=== PATIENT | male | born 1995 | race African-American/Black ===

== ENCOUNTER 2024-12-10 09:21 | Emergency (ER) | payer MEDICAID ==
[2024-12-10 09:40] VITALS: TEMP 98.4
--- NOTE | 2024-12-10 09:53 | ERPHSYRPT ---
- History of Present Illness Time Seen by Provider: 12/10/24 09:49 Historian: patient Exam Limitations: no limitations Patient Subjective Stated Complaint: Pt c/o of N&V and diarrhea for 2 days, pt has a hx of seizures and hasn't had his medications for a couple of months due to being new to the area and did have a seizure in the past 48 hours Triage Nursing Assessment: Pt brought to the ER by EMS, vitals wnl, rates right sided lateral upper pain, pulses normal, skin n/w/d, denies chest pain, no difficulty breathing, pt reports having a syncopal episode while on the toilet this morning, N&V and diarrhea, doesn't appear to be in any distress Physician History: 29 years old male with history of seizure disorders currently out of his medications for almost a month since patient moved here and has not established care yet presented in the ER with 2 days history of right-sided abdominal pain with nausea vomiting. Patient reports he is not able to hold anything down. Feeling weak fatigued tired, dizzy and lightheaded. Earlier he was vomiting and then passed out for few seconds and did hit his head against the floor. No seizure-like activity noticed. Reports moderate intensity abdominal pain in the right upper abdomen with some radiation to the back. No difficulty breathing. No fever or chills reported. Allergies/Adverse Reactions: No Known Drug Allergies Allergy (Verified 12/10/24 09:40) Hx Influenza Vaccination/Date Given: No Hx Pneumococcal Vaccination/Date Given: No Travel Risk - International Travel Have you traveled outside of the country in past 3 weeks: No - Emerging Infectious Disease Are you exhibiting symptoms associated with any current EIDs: Yes Symptoms: Abdominal Pain, Diarrhea, Vomitting - Review of Systems Constitutional: Fatigue, Weakness Eyes: No Symptoms Ears, Nose, & Throat: No Symptoms Respiratory: No Symptoms Cardiac: No Symptoms Abdominal/Gastrointestinal: Abdominal Pain, Nausea, Vomiting Genitourinary Symptoms: No Symptoms Musculoskeletal: No Symptoms Neurological: Dizziness Psychological: No Symptoms Endocrine: No Symptoms Hematologic/Lymphatic: No Symptoms Immunological/Allergic: No Symptoms - Past Medical History Pertinent Past Medical History: Yes Neurological History: Seizures Cardiac History: Other Other Medical History: reports a "heart incident" when asked he states that it was like a mini heart attack, born with a heart murmur - Past Surgical History Past Surgical History: Yes Gastrointestinal: Appendectomy - Social History Smoking Status: Current every day smoker Exposure to second hand smoke: Yes Drug Use: none - Social Determinants of Health Will the patient participate in the screening: Yes Do you worry about a steady place to live?: No Do you have any problems with any of the following?: No known problems In the past 12 months,have you had to go without utilities?: No Transportation Issues: No Has anyone in your support network made you feel unsafe?: No Have you or anyone in your house had to go w/o enough food: No - Nursing Vital Signs Nursing Vital Signs: Initial Vital Signs Temperature 98.4 F 12/10/24 09:26 Pulse Rate 69 12/10/24 09:26 Blood Pressure 136/80 12/10/24 09:26 O2 Sat by Pulse Oximetry 98 12/10/24 09:26 Pain Scale Pain Intensity 0 - Physical Exam General Appearance: no apparent distress, alert Eye Exam: PERRL/EOMI Ears, Nose, Throat Exam: normal ENT inspection Neck Exam: normal inspection, supple, full range of motion Respiratory Exam: normal breath sounds, lungs clear Cardiovascular Exam: regular rate/rhythm, normal heart sounds Gastrointestinal/Abdomen Exam: soft, normal bowel sounds, tenderness (Right upper abdomen with some guarding but no rebound.) Back Exam: normal inspection, normal range of motion Extremity Exam: normal inspection, normal range of motion, pelvis stable Neurologic Exam: alert, oriented x 3, cooperative, merry go round operator II-XII nml as tested, normal mood/affect, nml cerebellar function, nml station & gait, sensation nml, No motor deficits Skin Exam: normal color SpO2 Interpretation: normal SpO2: 98 O2 Delivery: Room Air Ordered Tests: Active Orders 24 hr Category Date Time Status IV Insertion STAT Care 12/10/24 09:49 Active NPO (ED) STAT Care 12/10/24 09:49 Active ABDOMEN AND PELVIS W/0 CONTRAS [CT] Stat Exams 12/10/24 09:50 Completed HEAD WITHOUT CONTRAST [CT] Stat Exams 12/10/24 09:50 Completed CBC W DIFF Stat Lab 12/10/24 10:50 Completed CMP Stat Lab 12/10/24 10:50 Completed LIPASE Stat Lab 12/10/24 10:50 Completed UA W/RFX UR CULTURE Stat Lab 12/10/24 10:32 Completed Medication Summary Discontinued Medications Generic Name Dose Route Start Last Admin Trade Name Jonathan PRN Reason Stop Dose Admin Sodium Chloride 1,000 mls @ 999 mls/hr 12/10/24 09:49 12/10/24 11:29 Sodium Chloride 0.9% 1000 Ml IV 12/10/24 10:49 Infused .Q1H1M STA Infusion Sodium Chloride Confirm 12/10/24 09:58 Sodium Chloride 0.9% 1000 Ml Administered 12/10/24 09:59 Dose 1,000 mls @ ud .ROUTE .STK-MED ONE Morphine Sulfate 4 mg 12/10/24 09:49 12/10/24 09:59 Morphine Sulfate 4 Mg/Ml Injection IV 12/10/24 09:50 4 mg STAT ONE Administration Morphine Sulfate Confirm 12/10/24 09:58 Morphine Sulfate 4 Mg/Ml Injection Administered 12/10/24 09:59 Dose 4 mg .ROUTE .STK-MED ONE Ondansetron HCl 4 mg 12/10/24 09:49 12/10/24 09:59 Ondansetron Hcl 4 Mg/2 Ml Vial IV 12/10/24 09:50 4 mg STAT ONE Administration Ondansetron HCl Confirm 12/10/24 09:57 Ondansetron Hcl 4 Mg/2 Ml Vial Administered 12/10/24 09:58 Dose 4 mg .ROUTE .STK-MED ONE Lab/Rad Data: Laboratory Result Diagrams 12/10/24 10:50 12/10/24 10:50 Laboratory Results 12/10/24 12/10/24 12/10/24 Range/Units 10:50 10:50 10:32 WBC 11.3 H (4.23-9.07) x10^3/uL RBC 4.52 L (4.63-6.08) x10^6/uL Hgb 14.1 (13.7-17.5) g/dL Hct 40.9 (40.1-51.0) % MCV 90.5 (79.0-92.2) fL MCH 31.2 (25.7-32.2) pg MCHC 34.5 (32.3-36.5) g/dL RDW 12.6 (11.6-14.4) % Plt Count 270 (163-337) x10^3/uL MPV 10.0 (9.4-12.4) fL Gran % 74.7 H (34.0-67.9) % Immature Gran % (Auto) 0.4 (0.001-0.429) % Nucleat RBC Rel Count 0.0 (0.00-0.2) % Eos # (Auto) 0.02 L (0.04-0.54) x10^3/uL Immature Gran # (Auto) 0.04 H (0.001-0.031) x10^3u/L Absolute Lymphs (auto) 2.14 (1.32-3.57) x10^3/uL Absolute Monos (auto) 0.61 (0.30-0.82) x10^3/uL Absolute Nucleated RBC 0.00 (0.00-0.012) x10^3u/L Lymphocytes % 18.9 L (21.8-53.1) % Monocytes % 5.4 (5.3-12.2) % Eosinophils % 0.2 L (0.8-7.0) % Basophils % 0.4 (0.2-1.2) % Absolute Granulocytes 8.46 H (1.78-5.38) x10^3/uL Basophils # 0.05 (0.01-0.08) x10^3/uL Sodium 139 (135-145) mmol/L Potassium 3.8 (3.5-5.1) mmol/L Chloride 107 (98-107) mmol/L Carbon Dioxide 22 (22-30) mmol/L Anion Gap 13.4 (5-15) MEQ/L BUN 13 (9-20) mg/dL Creatinine 0.94 (0.66-1.25) mg/dL Estimated GFR 111.8 ML/MIN Glucose 95 (74-106) mg/dL Calcium 9.1 (8.4-10.2) mg/dL Total Bilirubin 1.30 (0.2-1.3) mg/dL AST 31 (17-59) U/L ALT 21 (0-50) U/L Alkaline Phosphatase 49 (38-126) U/L Serum Total Protein 6.9 (6.3-8.2) g/dL Albumin 4.3 (3.5-5.0) g/dL Lipase 50 (23-300) U/L Urine Color Yellow (Yellow) Urine Appearance Clear (Clear) Urine pH 7.0 (4.6-8.0) Ur Specific [place] <=1.005 (1.005-1.030) Urine Protein Negative (Negative) Urine Glucose (UA) Negative (Negative) mg/dL Urine Ketones Negative (Negative) Urine Blood Negative (Negative) Urine Nitrite Negative (Negative) Urine Bilirubin Negative (Negative) Urine Urobilinogen 0.2 (0.2) mg/dL Ur Leukocyte Esterase Negative (Negative) U Hyaline Cast (Auto) NONE SEEN (0-2) /LPF Urine Microscopic RBC 0-2 (0-5) /HPF Urine Microscopic WBC 0-2 (0-5) /HPF Ur Epithelial Cells None Seen (None Seen) /HPF Urine Bacteria None Seen (None Seen) /HPF Urine Culture Reflexed NO (NO) - Progress Progress: improved, pain not gone completely Progress Note: 12/10/24 13:12 29 years old is evaluated the ER for right-sided abdominal pain with nausea vomiting. Patient has some tenderness in the right upper quadrant but no rebound. He is given fluids and symptomatic treatment, on reevaluation his pain is remar kably improved. No vomiting after Zofran while in the ER. White count of 11, chemistries fairly unremarkable, normal lipase. No UTI. CT abdomen pelvis showed normal gallbladder pancreas and no other acute abdominal pelvic findings. I believe patient possibly have viral gastroenteritis symptoms, recommended supportive/symptomatic care. Since patient has history of seizures and is off of his medication, will give him a prescription of Keppra and recommended outpatient follow-up with PCP. Discussed signs symptoms of worsening needing return to ER which she seems understanding. Stable for discharge. Complexity of problem addressed: Moderate acute Complexity of data reviewed/analyzed: Moderate Risk of complications/morbidity associated with condition: Low Counseled pt/family regarding: lab results, diagnosis, need for follow-up, rad results Medical Desision Making - Diagnostic Testing Diagnostic test were ordered, analyzed, and reviewed by me: Yes Radiological Interpretation: Reviewed by me - Risk of complications The pt has a mod risk of morbidity or mortality based on: Need for prescription drug management - Departure Departure Disposition: Home Clinical Impression: Upper abdominal pain, Vomiting, Seizure Condition: Stable Critical Care Time: No Referrals: DOCTOR,NO FAMILY [Primary Care Provider] - Follow up with PCP 1 day Instructions: Nausea and vomiting in adults - ED discharge instructions Additional Instructions: take Tylenol / Zofran as needed, follow up with PCP for re evaluations, return to ER for worsening Prescriptions: Levetiracetam [Keppra] 750 mg PO BID 30 Days #60 tablet Ondansetron ODT 4 MG [Zofran Odt 4 mg] 1 ea PO QIDPRN PRN #7 tablet PRN Reason: n/v
[2024-12-10] MEDS ORDERED: Zofran 4 MG/2 ML VIAL ONE (09:57)
[2024-12-10] MEDS ORDERED: MORPHINE SULFATE 4 MG INJ ONE (09:58)
[2024-12-10] MEDS ORDERED: Sodium Chloride 0.9% 1000 ML 1,000 ML ONE (09:58)
[2024-12-10] MEDS: Sodium Chloride 0.9% 1000 ML 1,000 ML IV STA (09:59)
[2024-12-10] MEDS: Zofran 4 MG/2 ML VIAL IV ONE (09:59)
[2024-12-10] MEDS: MORPHINE SULFATE 4 MG INJ IV ONE (09:59)
[2024-12-10 10:58] LABS: Absolute Neutrophil Ct (ANC) 8.46 x10^3/uL (1.78-5.38); BASOPHIL % 0.4 % (0.2-1.2); Basophil (Absolute #) 0.05 x10^3/uL (0.01-0.08); Eosinophil % 0.2 % (0.8-7.0); Eosinophil (Absolute #) 0.02 x10^3/uL (0.04-0.54); Hematocrit 40.9 % (40.1-51.0); Hemoglobin 14.1 g/dL (13.7-17.5); IMMATURE GRAN # 0.04 x10^3u/L (0.001-0.031); IMMATURE GRAN % 0.4 % (0.001-0.429); Lymphocyte (Absolute #) 2.14 x10^3/uL (1.32-3.57); Lymphocytes % 18.9 % (21.8-53.1); Mean Cell Volume 90.5 fL (79.0-92.2); Mean Corpuscular Hemoglobin 31.2 pg (25.7-32.2); Mean Corpuscular Hgb Concent. 34.5 g/dL (32.3-36.5); Monocyte (Absolute #) 0.61 x10^3/uL (0.30-0.82); Monocytes % 5.4 % (5.3-12.2); Neutrophil % 74.7 % (34.0-67.9); Platelet Count 270 x10^3/uL (163-337); Red Blood Count 4.52 x10^6/uL (4.63-6.08); Red Cell Distribution Width 12.6 % (11.6-14.4); White Blood Count 11.3 x10^3/uL (4.23-9.07)
[2024-12-10 11:11] LABS: ALBUMIN 4.3 g/dL (3.5-5.0); ANION GAP 13.4 MEQ/L (5-15); BILIRUBIN,TOTAL 1.3 mg/dL (0.2-1.3); Calcium 9.1 mg/dL (8.4-10.2); Creatinine 1 0.94 mg/dL (0.66-1.25); EST GLOMERULAR FILTRATION RATE 111.8 ML/MIN; Potassium 3.8 mmol/L (3.5-5.1); Total Protein 6.9 g/dL (6.3-8.2)
--- NOTE | 2024-12-10 11:28 | XRAY ---
Indication: Syncope. Head injury. Multiple contiguous axial images obtained through the head without contrast. Comparison: None Normal appearing brain parenchyma, ventricles, and bony calvarium. Visualized paranasal sinuses and mastoid air cells are clear. Impression: Normal CT head without contrast exam.
--- NOTE | 2024-12-10 11:35 | XRAY ---
Indication: Right pain. Vomiting. Multiple contiguous axial images obtained through the abdomen and pelvis without contrast. Comparison: None Lung bases clear. Heart not enlarged. Noncontrasted stomach and bowel loops appear nonobstructed. Previous appendectomy. No free fluid/air. Right kidney demonstrates nonobstructing punctate calculus. Remaining liver, gallbladder, pancreas, spleen, adrenal glands, kidneys, ureters, bladder, and aorta are unremarkable for noncontrast exam. Osseous structures intact with minimal dextroscoliosis centered at L3. No ventral or inguinal hernias. Impression: Nonobstructing right renal punctate calculus and minimal dextroscoliosis. Otherwise normal CT abdomen/pelvis without contrast exam.
[2024-12-10 12:15] VITALS: PULSE 60
[2024-12-10 13:02] VITALS: BP 117/80
[2024-12-10 13:04] LABS: Appearance Clear (Clear); Bacteria None Seen /HPF (None Seen); Bilirubin Negative (Negative); Blood Negative (Negative); Epithelial Cells None Seen /HPF (None Seen); Glucose, Urine Negative (Negative); Hyaline Casts NONE SEEN /LPF (0-2); Ketones Negative (Negative); Leukocyte Esterase Negative (Negative); Nitrite Negative (Negative); Protein,Urine Dip Negative (Negative); RBC 0-2 /HPF (0-5); Specific Gravity <=1.005 (1.005-1.030); Urobilinogen 0.2 mg/dL (0.2); WBC 0-2 /HPF (0-5)
[2024-12-10 13:13] VITALS: O2SAT 98
== END 2024-12-10 13:26 | disposition home or self-care (01) ==
LOC: ED 09:21
DX: R11.2 Nausea with vomiting, unspecified (principal); R10.10 Upper abdominal pain, unspecified; G40.909 Epilepsy, unspecified, not intractable, without status epilepticus; R53.1 Weakness; Z79.899 Other long term (current) drug therapy; Z72.0 Tobacco use
CPT/HCPCS: 36415; 70450; 74176; 80053; 81001; 83690; 85025; 96361; 96374; 96375; 99284; J2270; J2405

== ENCOUNTER 2024-12-12 11:34 | Emergency (ER) | payer MEDICAID ==
[2024-12-12] MEDS ORDERED: XYLOCAINE 1% HCL 20 ML MDV IJ ONE (11:35)
[2024-12-12 11:59] VITALS: BP 128/83; PULSE 57; RESP 20; TEMP 97.9; O2SAT 98
--- NOTE | 2024-12-12 12:25 | ERPHSYRPT ---
- History of Present Illness Time Seen by Provider: 12/12/24 12:21 Source: patient Exam Limitations: no limitations Patient Subjective Stated Complaint: Abdominal pain Triage Nursing Assessment: Patient ambulated back to ED and transferred self to bed. Patient A+O X3. Patient's skin pink, warm and dry. Patient complains of mid abdominal pain 6/10 with N/V and diarrhea. Patient was seen 2 days ago in ER and is not better. Patient also complains of white/clear discharge from penis. Patient also complains of penis being rough feeling. Physician History: Patient is 29-year-old male with without any significant past medical history came to the emergency room with lower abdominal pain and some irritation at the opening of the penile area. Patient denies any fever chills nausea or vomiting. Patient was seen in the emergency room 2 days ago with a he came with abdominal pain nausea and vomiting. His CAT scan was normal except for small right renal calculi. His white count was 11,500 rest of the labs including urinalysis were normal. Now patient denies any nausea or vomiting but complaining of lower abdominal pain with some irritation at the opening of the penis he denies any discharge except some clear discharge. Timing/Duration: day(s) Severity: mild Associated Symptoms: nausea, vomiting, abdominal pain Allergies/Adverse Reactions: No Known Drug Allergies Allergy (Verified 12/12/24 11:48) Hx Influenza Vaccination/Date Given: No Hx Pneumococcal Vaccination/Date Given: No Immunizations Up to Date: Yes Travel Risk - International Travel Have you traveled outside of the country in past 3 weeks: No - Emerging Infectious Disease Are you exhibiting symptoms associated with any current EIDs: No Symptoms: Abdominal Pain, Diarrhea, Vomitting - Review of Systems Constitutional: No Fever, No Chills Eyes: No Symptoms Ears, Nose, & Throat: No Symptoms Respiratory: No Cough, No Dyspnea Cardiac: No Chest Pain, No Edema, No Syncope Abdominal/Gastrointestinal: Abdominal Pain, Nausea, Vomiting, No Diarrhea Genitourinary Symptoms: Penile Discharge, No Dysuria, No Frequency, No Hematuria, No Hesitancy, No Incontinence, No Urgency, No Urinary Retention, No Flank Pain, No Testicle Pain Musculoskeletal: No Back Pain, No Neck Pain Skin: No Rash Neurological: No Dizziness, No Focal Weakness, No Sensory Changes Psychological: No Symptoms Endocrine: No Symptoms All Other Systems: Reviewed and Negative - Past Medical History Pertinent Past Medical History: Yes Neurological History: Seizures Cardiac History: Other Other Medical History: reports a "heart incident" when asked he states that it was like a mini heart attack, born with a heart murmur - Past Surgical History Past Surgical History: Yes Gastrointestinal: Appendectomy - Social History Smoking Status: Current every day smoker How long have you smoked: years Exposure to second hand smoke: No Drug Use: marijuana - Social Determinants of Health Will the patient participate in the screening: Yes Do you worry about a steady place to live?: No Do you have any problems with any of the following?: No known problems In the past 12 months,have you had to go without utilities?: No Transportation Issues: No Has anyone in your support network made you feel unsafe?: No Have you or anyone in your house had to go w/o enough food: No - Nursing Vital Signs Nursing Vital Signs: Initial Vital Signs Temperature 97.9 F 12/12/24 11:49 Pulse Rate 57 L 12/12/24 11:49 Respiratory Rate 20 12/12/24 11:49 Blood Pressure 128/83 12/12/24 11:49 O2 Sat by Pulse Oximetry 98 12/12/24 11:49 Pain Scale Pain Intensity 6 - Physical Exam General Appearance: no apparent distress, alert Eye Exam: PERRL/EOMI, eyes nml inspection Ears, Nose, Throat Exam: normal ENT inspection, TMs normal, pharynx normal, moist mucous membranes Neck Exam: normal inspection, non-tender, supple, full range of motion Respiratory Exam: normal breath sounds, lungs clear, No respiratory distress Cardiovascular Exam: regular rate/rhythm, normal heart sounds, normal peripheral pulses Gastrointestinal/Abdomen Exam: soft, normal bowel sounds, No tenderness, No mass Back Exam: normal inspection, normal range of motion, No CVA tenderness, No vertebral tenderness Extremity Exam: normal inspection, normal range of motion, pelvis stable Neurologic Exam: alert, oriented x 3, cooperative, normal mood/affect, nml cerebellar function, nml station & gait, sensation nml, No motor deficits Skin Exam: normal color, warm, dry, No rash Lymphatic Exam: No adenopathy SpO2: 98 - Course Nursing assessment & vital signs reviewed: Yes Ordered Tests: Active Orders 24 hr Category Date Time Status UA W/RFX UR CULTURE Stat Lab 12/12/24 11:58 Completed Lab/Rad Data: Laboratory Results 12/12/24 12/12/24 Range/Units 11:58 11:58 Urine Color Yellow (Yellow) Urine Appearance CLEAR (Clear) Urine pH 6.5 (4.6-8.0) Ur Specific [place] <=1.005 (1.005-1.030) Urine Protein Negative (Negative) Urine Glucose (UA) Negative (Negative) mg/dL Urine Ketones Negative (Negative) Urine Blood Negative (Negative) Urine Nitrite Negative (Negative) Urine Bilirubin Negative (Negative) Urine Urobilinogen 0.2 (0.2) mg/dL Ur Leukocyte Esterase Negative (Negative) U Hyaline Cast (Auto) NONE SEEN (0-2) /LPF Urine Microscopic RBC 0-2 (0-5) /HPF Urine Microscopic WBC 0-2 (0-5) /HPF Ur Epithelial Cells None Seen (None Seen) /HPF Urine Bacteria None Seen (None Seen) /HPF Urine Culture Reflexed NO (NO) Chlamydia DNA Probe NOT DETECTED (NEGATIVE) N.gonorrhoeae DNA Probe NOT DETECTED (NEGATIVE) - Progress Progress: improved Counseled pt/family regarding: lab results, diagnosis, need for follow-up Medical Desision Making - Diagnostic Testing Diagnostic test were ordered, analyzed, and reviewed by me: Yes - Risk of complications Low Risk: Low risk of morbidity from additional dx testing or treatment - Departure Departure Disposition: Home Clinical Impression: Lower abdominal pain of unknown etiology Condition: Stable Critical Care Time: No Referrals: DOCTOR,NO FAMILY [Primary Care Provider] - Follow up/PCP as directed Instructions: Abdominal pain Additional Instructions: Discharge/Care Plan IOANA PARKS was seen on 12/12/24 in the Emergency Room. The patient was coun seled regarding Diagnosis,Lab results, Imaging studies, need for follow up and when to return to the Emergency Room. Prescriptions given: Discharge Note I have spoken with the patient and/or caregivers. I have explained the patient's condition, diagnosis and treatment plan based on the information available to me at this time. I have answered the patient's and/or caregiver's questions and addressed any concerns. The patient and/or caregivers have as good understanding of the patient's diagnosis, condition and treatment plan as can be expected at this point. The vital signs have been stable. The patient's condition is stable and appropriate for discharge from the emergency department. The patient will pursue further outpatient evaluation with the primary care physician or other designated or consulting physician as outlined in the discharge instructions. The patient and/or caregivers are agreeable to this plan of care and follow-up instructions have been explained in detail. The patient and/or caregivers have received these instruction. The patient/and or caregivers are aware that any significant change in condition or worsening of symptoms should prompt an immediate return to this or the closest emergency department or call 911. IOANA PARKS was seen on 12/12/24 n the Emergency Room. At that time you were treated for an emergent condition, during your visit Laboratory, Radiology and/or other procedures may have been ordered. It is very important that you follow-up with your Primary Care Physician NO FAMILY DOCTOR within the next 24- 48 hours to review your Emergency Room visit and the final results of testing that was ordered. Some test results such as Urine Cultures, Blood Cultures, and other cultures if ordered will not be finalized for 24-48 hours. If you do not have a Primary Care Provider please call the medical records department at [phone] ext [phone] to obtain a copy of your results or you may sign into our patient portal to obtain these results by visiting us @ [email or web address] and completing the following steps: 1. Click on the Patient Portal link 2. Click the Patient Self Enrollment Link to complete the enrollment form and entering your 3. Once the enrollment form is completed you will receive an email with a temporary ID and password at the email address you provided. 4. Next choose a user name and password. Your user name must be at least 4 characters long and your password must be at least 4 characters long. 5. Choose a security question from the list and provide your answer to the question. If you already have signed into the Health Portal you may access your Health Care Information 29/04 by the following steps: 1. Login to our website @ [email or web address] 2. Enter your original user name and password. FAQS The [facility] Health Portal is an online tool that contains your Lab Results, Radiology Reports, Visit History, Discharge Instructions and Health Summary Lab and Radiology Results will not be available for 72 hours on the portal. The Portal is a secure site, passwords are encryted and URLs are re-written so they cannot be copied and pasted. You and authorized family members are the only ones who can access your Portal. Also there is a timeout feature that protects your information if you leave the Portal page open. If you have technical difficulty please use the Contact Us link on the page this will allow you to submit any questions you have regarding the Portal or you may contact the Medical Record Department at [phone]. Prescriptions: Doxycycline Hyclate 100 mg [Vibramycin 100 MG] 100 mg PO BID #14 tab
[2024-12-12 12:41] LABS: Bacteria None Seen /HPF (None Seen); Bilirubin Negative (Negative); Blood Negative (Negative); Epithelial Cells None Seen /HPF (None Seen); Glucose, Urine Negative (Negative); Hyaline Casts NONE SEEN /LPF (0-2); Ketones Negative (Negative); Leukocyte Esterase Negative (Negative); Nitrite Negative (Negative); Ph 6.5 (4.6-8.0); Protein,Urine Dip Negative (Negative); RBC 0-2 /HPF (0-5); Specific Gravity <=1.005 (1.005-1.030); Urobilinogen 0.2 mg/dL (0.2); WBC 0-2 /HPF (0-5)
[2024-12-12 12:42] LABS: Appearance CLEAR (Clear)
[2024-12-12 13:28] LABS: CHLAMYDIA DNA NOT DETECTED (NEGATIVE); GC DNA Probe NOT DETECTED (NEGATIVE)
[2024-12-12] MEDS ORDERED: Rocephin 1000 MG INJ ONE (13:48)
[2024-12-12] MEDS: Rocephin 1000 MG INJ IM ONE (13:54)
== END 2024-12-12 14:15 | disposition home or self-care (01) ==
LOC: ED 11:34
DX: R10.30 Lower abdominal pain, unspecified (principal); N48.89 Other specified disorders of penis; Z79.899 Other long term (current) drug therapy; Z72.0 Tobacco use
CPT/HCPCS: 81001; 87491; 87591; 96372; 99283; J0696

== ENCOUNTER 2024-12-21 14:14 | Emergency (ER) | payer MEDICAID ==
--- NOTE | 2024-12-21 14:35 | ERPHSYRPT ---
- History of Present Illness Time Seen by Provider: 12/21/24 14:33 Source: patient Exam Limitations: no limitations Patient Subjective Stated Complaint: patient states he had a seizure earlier at the [facility] EMS reports when they arrived her was shaking Triage Nursing Assessment: patient alert and oriented x3, Physician History: Patient is a 29-year-old male with a history of seizure disorder presents to our ED via EMS for evaluation of a seizure. Patient reportedly had a generalized seizure while at work. On arrival to our ED patient was conversant. No reports of incontinence. No tongue biting. Patient states he had a seizure approximately 2 weeks ago. He went to [facility] he had a CT of his head there. Patient had his Keppra medication modified. Patient had been doing well up until today. Patient currently complains of some right-sided chest soreness. No abdominal pain. He denies trauma. No neck pain. Cervical spine cleared clinically. Patient otherwise feels well. He voices no other complaints or concerns at this time. Portions of this note were created with voice recognition technology. There may be grammatical, spelling, punctuation or sound alike errors Timing/Duration: today Severity: moderate Modifying Factors: Improves With: nothing Associated Symptoms: denies symptoms Allergies/Adverse Reactions: No Known Drug Allergies Allergy (Verified 12/12/24 11:48) Hx Tetanus, Diphtheria Vaccination/Date Given: Yes Hx Influenza Vaccination/Date Given: No Hx Pneumococcal Vaccination/Date Given: No Immunizations Up to Date: Yes Travel Risk - International Travel Have you traveled outside of the country in past 3 weeks: No - Emerging Infectious Disease Are you exhibiting symptoms associated with any current EIDs: No Symptoms: Abdominal Pain, Diarrhea, Vomitting - Review of Systems Constitutional: No Symptoms, No Fever, No Chills Eyes: No Symptoms Ears, Nose, & Throat: No Symptoms Respiratory: No Symptoms, No Cough, No Dyspnea Cardiac: No Symptoms, No Chest Pain, No Edema, No Syncope Abdominal/Gastrointestinal: No Symptoms, No Abdominal Pain, No Nausea, No Vomiting, No Diarrhea Genitourinary Symptoms: No Symptoms, No Dysuria Musculoskeletal: No Symptoms, No Back Pain, No Neck Pain Skin: No Symptoms, No Rash Neurological: No Symptoms, No Dizziness, No Focal Weakness, No Sensory Changes Psychological: No Symptoms Endocrine: No Symptoms Hematologic/Lymphatic: No Symptoms Immunological/Allergic: No Symptoms All Other Systems: Reviewed and Negative - Past Medical History Pertinent Past Medical History: Yes Neurological History: Seizures Cardiac History: Other Other Medical History: reports a "heart incident" when asked he states that it was like a mini heart attack, born with a heart murmur - Past Surgical History Past Surgical History: Yes Gastrointestinal: Appendectomy - Social History Smoking Status: Current every day smoker How long have you smoked: 15 Drug Use: marijuana - Social Determinants of Health Will the patient participate in the screening: Yes Do you worry about a steady place to live?: Yes Do you have any problems with any of the following?: Mold In the past 12 months,have you had to go without utilities?: No Transportation Issues: Yes Has anyone in your support network made you feel unsafe?: No Have you or anyone in your house had to go w/o enough food: No - Nursing Vital Signs Nursing Vital Signs: Initial Vital Signs Pulse Rate 69 12/21/24 14:14 Respiratory Rate 16 12/21/24 14:14 Blood Pressure 132/80 12/21/24 14:14 O2 Sat by Pulse Oximetry 99 12/21/24 14:14 Pain Scale Pain Intensity 0 - Physical Exam General Appearance: no apparent distress, alert Eye Exam: PERRL/EOMI, eyes nml inspection Ears, Nose, Throat Exam: normal ENT inspection, TMs normal, pharynx normal, moist mucous membranes Neck Exam: normal inspection, non-tender, supple, full range of motion Respiratory Exam: normal breath sounds, lungs clear, No respiratory distress Cardiovascular Exam: regular rate/rhythm, normal heart sounds, normal peripheral pulses Gastrointestinal/Abdomen Exam: soft, normal bowel sounds, No tenderness, No mass Back Exam: normal inspection, normal range of motion, No CVA tenderness, No vertebral tenderness Extremity Exam: normal inspection, normal range of motion, pelvis stable Neurologic Exam: alert, oriented x 3, cooperative, normal mood/affect, sensation nml, No motor deficits Skin Exam: normal color, warm, dry, No rash Lymphatic Exam: No adenopathy SpO2 Interpretation: normal SpO2: 99 O2 Delivery: Room Air - Course Nursing assessment & vital signs reviewed: Yes EKG Interpreted by Me: RATE (54), Sinus Rhythm, NORMAL AXIS, NORMAL INTERVALS, NORMAL QRS Ordered Tests: Active Orders 24 hr Category Date Time Status AMA [Release AMA] OM.NOW Care 12/21/24 19:46 Active College [employer] STAT Care 12/21/24 15:06 Active EKG-ER Only STAT Care 12/21/24 15:05 Active IV Insertion STAT Care 12/21/24 15:05 Completed Pulse Oximetry (ED) STAT Care 12/21/24 15:05 Active CBC W DIFF Stat Lab 12/21/24 15:15 Completed CMP Stat Lab 12/21/24 15:15 Completed MAGNESIUM Stat Lab 12/21/24 15:15 Completed TROPONIN Q4H Lab 12/21/24 15:15 Completed TROPONIN Q4H Lab 12/21/24 18:38 Completed TROPONIN Q4H Lab 12/21/24 23:15 Ordered UA W/RFX UR CULTURE Stat Lab 12/21/24 15:06 Completed Urine Triage Profile Stat Lab 12/21/24 15:06 Completed Lab/Rad Data: Laboratory Result Diagrams 12/21/24 15:15 12/21/24 15:15 Laboratory Results 12/21/24 12/21/24 12/21/24 Range/Units 18:38 15:15 15:15 WBC (4.23-9.07) x10^3/uL RBC (4.63-6.08) x10^6/uL Hgb (13.7-17.5) g/dL Hct (40.1-51.0) % MCV (79.0-92.2) fL MCH (25.7-32.2) pg MCHC (32.3-36.5) g/dL RDW (11.6-14.4) % Plt Count (163-337) x10^3/uL MPV (9.4-12.4) fL Gran % (34.0-67.9) % Immature Gran % (Auto) (0.001-0.429) % Nucleat RBC Rel Count (0.00-0.2) % Eos # (Auto) (0.04-0.54) x10^3/uL Immature Gran # (Auto) (0.001-0.031) x10^3u/L Absolute Lymphs (auto) (1.32-3.57) x10^3/uL Absolute Monos (auto) (0.30-0.82) x10^3/uL Absolute Nucleated RBC (0.00-0.012) x10^3u/L Lymphocytes % (21.8-53.1) % Monocytes % (5.3-12.2) % Eosinophils % (0.8-7.0) % Basophils % (0.2-1.2) % Absolute Granulocytes (1.78-5.38) x10^3/uL Basophils # (0.01-0.08) x10^3/uL Sodium 138 (135-145) mmol/L Potassium 4.2 (3.5-5.1) mmol/L Chloride 104 (98-107) mmol/L Carbon Dioxide 25 (22-30) mmol/L Anion Gap 13.6 (5-15) MEQ/L BUN 15 (9-20) mg/dL Creatinine 0.87 (0.66-1.25) mg/dL Estimated GFR 119.0 ML/MIN Glucose 86 (74-106) mg/dL Calcium 9.9 (8.4-10.2) mg/dL Magnesium 2.0 (1.6-2.3) mg/dL Total Bilirubin 1.20 (0.2-1.3) mg/dL AST 30 (17-59) U/L ALT 22 (0-50) U/L Alkaline Phosphatase 50 (38-126) U/L Troponin I < 0.012 < 0.012 (0.000-0.033) ng/mL Serum Total Protein 7.2 (6.3-8.2) g/dL Albumin 4.7 (3.5-5.0) g/dL Urine Color (Yellow) Urine Appearance (Clear) Urine pH (4.6-8.0) Ur Specific [place] (1.005-1.030) Urine Protein (Negative) Urine Glucose (UA) (Negative) mg/dL Urine Ketones (Negative) Urine Blood (Negative) Urine Nitrite (Negative) Urine Bilirubin (Negative) Urine Urobilinogen (0.2) mg/dL Ur Leukocyte Esterase (Negative) U Hyaline Cast (Auto) (0-2) /LPF Urine Microscopic RBC (0-5) /HPF Urine Microscopic WBC (0-5) /HPF Ur Epithelial Cells (None Seen) /HPF Urine Bacteria (None Seen) /HPF Urine Culture Reflexed (NO) Urine Opiates Level (NEGATIVE) Ur Methadone (NEGATIVE) Urine Barbiturates (NEGATIVE) Ur Phencyclidine (PCP) (NEGATIVE) Urine Amphetamine (NEGATIVE) U Benzodiazepine Level (NEGATIVE) Urine Cocaine (NEGATIVE) Urine Marijuana (THC) (NEGATIVE) 12/21/24 12/21/24 12/21/24 Range/Units 15:15 15:06 15:06 WBC 9.9 H (4.23-9.07) x10^3/uL RBC 4.59 L (4.63-6.08) x10^6/uL Hgb 14.2 (13.7-17.5) g/dL Hct 41.4 (40.1-51.0) % MCV 90.2 (79.0-92.2) fL MCH 30.9 (25.7-32.2) pg MCHC 34.3 (32.3-36.5) g/dL RDW 12.4 (11.6-14.4) % Plt Count 306 (163-337) x10^3/uL MPV 10.2 (9.4-12.4) fL Gran % 69.6 H (34.0-67.9) % Immature Gran % (Auto) 0.4 (0.001-0.429) % Nucleat RBC Rel Count 0.0 (0.00-0.2) % Eos # (Auto) 0.03 L (0.04-0.54) x10^3/uL Immature Gran # (Auto) 0.04 H (0.001-0.031) x10^3u/L Absolute Lymphs (auto) 2.33 (1.32-3.57) x10^3/uL Absolute Monos (auto) 0.58 (0.30-0.82) x10^3/uL Absolute Nucleated RBC 0.00 (0.00-0.012) x10^3u/L Lymphocytes % 23.4 (21.8-53.1) % Monocytes % 5.8 (5.3-12.2) % Eosinophils % 0.3 L (0.8-7.0) % Basophils % 0.5 (0.2-1.2) % Absolute Granulocytes 6.91 H (1.78-5.38) x10^3/uL Basophils # 0.05 (0.01-0.08) x10^3/uL Sodium (135-145) mmol/L Potassium (3.5-5.1) mmol/L Chloride (98-107) mmol/L Carbon Dioxide (22-30) mmol/L Anion Gap (5-15) MEQ/L BUN (9-20) mg/dL Creatinine (0.66-1.25) mg/dL Estimated GFR ML/MIN Glucose (74-106) mg/dL Calcium (8.4-10.2) mg/dL Magnesium (1.6-2.3) mg/dL Total Bilirubin (0.2-1.3) mg/dL AST (17-59) U/L ALT (0-50) U/L Alkaline Phosphatase (38-126) U/L Troponin I (0.000-0.033) ng/mL Serum Total Protein (6.3-8.2) g/dL Albumin (3.5-5.0) g/dL Urine Color Yellow (Yellow) Urine Appearance Clear (Clear) Urine pH 5.5 (4.6-8.0) Ur Specific [place] 1.015 (1.005-1.030) Urine Protein Negative (Negative) Urine Glucose (UA) Negative (Negative) mg/dL Urine Ketones Negative (Negative) Urine Blood Negative (Negative) Urine Nitrite Negative (Negative) Urine Bilirubin Negative (Negative) Urine Urobilinogen 0.2 (0.2) mg/dL Ur Leukocyte Esterase Negative (Negative) U Hyaline Cast (Auto) NONE SEEN (0-2) /LPF Urine Microscopic RBC 0-2 (0-5) /HPF Urine Microscopic WBC 0-2 (0-5) /HPF Ur Epithelial Cells None Seen (None Seen) /HPF Urine Bacteria None Seen (None Seen) /HPF Urine Culture Reflexed NO (NO) Urine Opiates Level NEGATIVE (NEGATIVE) Ur Methadone NEGATIVE (NEGATIVE) Urine Barbiturates NEGATIVE (NEGATIVE) Ur Phencyclidine (PCP) NEGATIVE (NEGATIVE) Urine Amphetamine NEGATIVE (NEGATIVE) U Benzodiazepine Level NEGATIVE (NEGATIVE) Urine Cocaine NEGATIVE (NEGATIVE) Urine Marijuana (THC) POSITIVE A (NEGATIVE) - Progress Progress: improved Progress Note: 29-year-old male history of seizure presents to our ED for evaluation of a seizure that occurred today while at work. Patient had a seizure earlier this month and had his medications adjusted. Laboratory workup in our ED essentially nonremarkable. No head trauma. CT head not repeated. We intended to consult neurology for recommendations regarding medication management. Patient decided to leave AGAINST MEDICAL ADVICE before neurology could evaluate him. No recurrence of seizure during the 5 hours that he has been in our emergency department. Patient is of sound mind. Patient is appropriate to make informed and independent medical decisions. Patient understands that leaving AGAINST MEDICAL ADVICE can result in delayed diagnosis, increased risk of morbidity, mortality, short and long-term disability including . In spite of these risks, patient has decided to leave AGAINST MEDICAL ADVICE. Patient understands that he may return to our ED at any point if he reconsiders. Patient agrees to follow-up with his primary care doctor within 48 hours for reevaluation. Patient voices no other complaints or concerns at this time. We will release patient AGAINST MEDICAL ADVICE per their request. Complexity of problem addressed is moderate acute complicated. No critical care time. Complexity of data reviewed and analyzed is moderate. Test ordered chest reviewed results analyzed and correlated clinically with history and physical exam. Risk of complication and or risk of morbidity/mortality of patient management is low. Vital stable. Time spent to discharge patient is approximately 15 minutes. Plan of care established for shared decision making. No social determinants of health present to impede follow-up. Portions of this note were created with voice recognition technology. There may be grammatical, spelling, punctuation or sound alike errors 12/21/24 19:47 Counseled pt/family regarding: lab results, diagnosis, need for follow-up - Departure Departure Disposition: AMA Clinical Impression: Seizure Condition: Stable Critical Care Time: No Referrals: DOCTOR,NO FAMILY [Primary Care Provider] - Follow up/PCP as directed ROBERT STOVER MD [ACTIVE STAFF] - Follow up/PCP as directed
[2024-12-21 15:19] LABS: Absolute Neutrophil Ct (ANC) 6.91 x10^3/uL (1.78-5.38); BASOPHIL % 0.5 % (0.2-1.2); Basophil (Absolute #) 0.05 x10^3/uL (0.01-0.08); Eosinophil % 0.3 % (0.8-7.0); Eosinophil (Absolute #) 0.03 x10^3/uL (0.04-0.54); Hematocrit 41.4 % (40.1-51.0); Hemoglobin 14.2 g/dL (13.7-17.5); IMMATURE GRAN # 0.04 x10^3u/L (0.001-0.031); IMMATURE GRAN % 0.4 % (0.001-0.429); Lymphocyte (Absolute #) 2.33 x10^3/uL (1.32-3.57); Lymphocytes % 23.4 % (21.8-53.1); Mean Cell Volume 90.2 fL (79.0-92.2); Mean Corpuscular Hemoglobin 30.9 pg (25.7-32.2); Mean Corpuscular Hgb Concent. 34.3 g/dL (32.3-36.5); Mean Platelet Volume 10.2 fL (9.4-12.4); Monocyte (Absolute #) 0.58 x10^3/uL (0.30-0.82); Monocytes % 5.8 % (5.3-12.2); Neutrophil % 69.6 % (34.0-67.9); Platelet Count 306 x10^3/uL (163-337); Red Blood Count 4.59 x10^6/uL (4.63-6.08); Red Cell Distribution Width 12.4 % (11.6-14.4); White Blood Count 9.9 x10^3/uL (4.23-9.07)
[2024-12-21 15:39] LABS: ALBUMIN 4.7 g/dL (3.5-5.0); ANION GAP 13.6 MEQ/L (5-15); BILIRUBIN,TOTAL 1.2 mg/dL (0.2-1.3); Calcium 9.9 mg/dL (8.4-10.2); Creatinine 1 0.87 mg/dL (0.66-1.25); Potassium 4.2 mmol/L (3.5-5.1); Total Protein 7.2 g/dL (6.3-8.2)
[2024-12-21 16:17] LABS: Appearance Clear (Clear); Bacteria None Seen /HPF (None Seen); Bilirubin Negative (Negative); Blood Negative (Negative); Epithelial Cells None Seen /HPF (None Seen); Glucose, Urine Negative (Negative); Hyaline Casts NONE SEEN /LPF (0-2); Ketones Negative (Negative); Leukocyte Esterase Negative (Negative); Nitrite Negative (Negative); Ph 5.5 (4.6-8.0); Protein,Urine Dip Negative (Negative); RBC 0-2 /HPF (0-5); Specific Gravity 1.015 (1.005-1.030); Urobilinogen 0.2 mg/dL (0.2); WBC 0-2 /HPF (0-5)
[2024-12-21 16:41] LABS: Amphetamine,Urine NEGATIVE (NEGATIVE); Barbiturate,Urine NEGATIVE (NEGATIVE); Benzodiazepine,Urine NEGATIVE (NEGATIVE); Cocaine,Urine NEGATIVE (NEGATIVE); Methadone,Urine NEGATIVE (NEGATIVE); Opiate,Urine NEGATIVE (NEGATIVE); PCP,Urine NEGATIVE (NEGATIVE); THC,Urine POSITIVE (NEGATIVE)
[2024-12-21 18:35] VITALS: RESP 14
[2024-12-21 19:02] VITALS: BP 119/85; PULSE 64
[2024-12-21 19:51] VITALS: O2SAT 99
== END 2024-12-21 19:57 | disposition home or self-care (01) ==
LOC: ED 14:14
DX: R56.9 Unspecified convulsions (principal); R07.9 Chest pain, unspecified; Z72.0 Tobacco use; Z59.819 Housing instability, housed unspecified; Z59.19 Other inadequate housing; Z59.82 Transportation insecurity
CPT/HCPCS: 36415; 80053; 80307; 81001; 83735; 84484; 85025; 93005; 93041; 94760; 99284

== ENCOUNTER 2025-02-17 10:27 | Emergency (ER) | payer SELFPAY ==
[2025-02-17 10:42] VITALS: TEMP 99.1
[2025-02-17] MEDS ORDERED: Sodium Chloride 0.9% 1000 ML 1,000 ML ONE ×2 (11:05→12:27)
[2025-02-17] MEDS ORDERED: Zofran 4 MG/2 ML VIAL ONE (11:05)
[2025-02-17] MEDS: Sodium Chloride 0.9% 1000 ML 1,000 ML IV SCH (11:07)
[2025-02-17] MEDS: Zofran 4 MG/2 ML VIAL IV ONE (11:07)
[2025-02-17] MEDS ORDERED: Ativan 2 MG/1 ML VIAL ONE (11:15)
[2025-02-17] MEDS: Ativan 2 MG/1 ML VIAL IV ONE (11:16)
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
[2025-02-17 11:40] LABS: Absolute Neutrophil Ct (ANC) 9.91 x10^3/uL (1.78-5.38); BASOPHIL % 0.2 % (0.2-1.2); Basophil (Absolute #) 0.03 x10^3/uL (0.01-0.08); Eosinophil % 0.2 % (0.8-7.0); Eosinophil (Absolute #) 0.02 x10^3/uL (0.04-0.54); Hematocrit 44.7 % (40.1-51.0); Hemoglobin 15.7 g/dL (13.7-17.5); IMMATURE GRAN # 0.04 x10^3u/L (0.001-0.031); IMMATURE GRAN % 0.3 % (0.001-0.429); Lymphocyte (Absolute #) 1.78 x10^3/uL (1.32-3.57); Lymphocytes % 14.3 % (21.8-53.1); Mean Corpuscular Hemoglobin 31.3 pg (25.7-32.2); Mean Corpuscular Hgb Concent. 35.1 g/dL (32.3-36.5); Mean Platelet Volume 11.2 fL (9.4-12.4); Monocyte (Absolute #) 0.64 x10^3/uL (0.30-0.82); Monocytes % 5.2 % (5.3-12.2); Neutrophil % 79.8 % (34.0-67.9); Platelet Count 315 x10^3/uL (163-337); Red Blood Count 5.02 x10^6/uL (4.63-6.08); Red Cell Distribution Width 12.5 % (11.6-14.4); White Blood Count 12.4 x10^3/uL (4.23-9.07)
[2025-02-17 11:51] LABS: ACETAMINOPHEN < 10 ug/ml (10-30); ALBUMIN 5.2 g/dL (3.5-5.0); ALKALINE PHOSPHATASE 54 U/L (38-126); ANION GAP 17.3 MEQ/L (5-15); BLOOD UREA NITROGEN 18 mg/dL (9-20); CHLORIDE 103 mmol/L (98-107); Carbon Dioxide 21 mmol/L (22-30); Creatinine 1 1.01 mg/dL (0.66-1.25); EST GLOMERULAR FILTRATION RATE 102.6 ML/MIN; ETHYL ALCOHOL < 10 mg/dL (0-10); Glucose 91 mg/dL (74-106); Potassium 4.2 mmol/L (3.5-5.1); SALICYLATE < 1.0 mg/dL (2-20); SGOT/AST 41 U/L (17-59); SGPT/ALT 22 U/L (0-50); SODIUM 137 mmol/L (135-145); Total Protein 7.9 g/dL (6.3-8.2)
[2025-02-17 11:59] LABS: Appearance Clear (Clear); Bacteria None Seen /HPF (None Seen); Bilirubin Small (Negative); Blood Negative (Negative); Epithelial Cells None Seen /HPF (None Seen); Glucose, Urine Negative (Negative); Ketones 80 (Negative); Leukocyte Esterase Negative (Negative); Nitrite Negative (Negative); Ph 5.5 (4.6-8.0); Protein,Urine Dip 30 (Negative); RBC 0-2 /HPF (0-5); Specific Gravity >=1.030 (1.005-1.030); Urobilinogen 0.2 mg/dL (0.2); WBC 0-2 /HPF (0-5)
[2025-02-17] MEDS: Sodium Chloride 0.9% 1000 ML 1,000 ML IV STA (12:27)
[2025-02-17 15:01] LABS: CHLAMYDIA DNA NOT DETECTED (NEGATIVE); GC DNA Probe NOT DETECTED (NEGATIVE)
[2025-02-17 15:09] VITALS: BP 135/78; PULSE 73; RESP 17
[2025-02-17 15:21] VITALS: O2SAT 99
== END 2025-02-17 15:40 | disposition home or self-care (01) ==
LOC: ED 10:27
DX: F41.0 Panic disorder [episodic paroxysmal anxiety] (principal); Z91.148 Patient's other noncompliance with medication regimen for other reason; E86.0 Dehydration; R07.9 Chest pain, unspecified; Z72.0 Tobacco use; Z59.82 Transportation insecurity; Z59.812 Housing instability, housed, homelessness in past 12 months; Z56.0 Unemployment, unspecified; Z59.9 Problem related to housing and economic circumstances, unspecified; Z59.41 Food insecurity
CPT/HCPCS: 36415; 80053; 80143; 80179; 81001; 82077; 84484; 85025; 87491; 87591; 93005; 93041; 96361; 96374; 96375; 99284; J2060; J2405